=== PATIENT | female | born 1970 | race Caucasian/White ===

== ENCOUNTER → 2024-10-03 10:59 | Outpatient (CLI) | payer OTHER, SELFPAY ==
[2024-10-03 11:38] LABS: Add Manual Diff / Slide Review NO; Basophils Absolute Auto 0 /uL (0-100); Basophils Percent Auto 0.5 % (0-2); Eosinophils Absolute Auto 400 /uL (0-450); Eosinophils Percent Auto 5.5 % (2-4); Hematocrit 41.1 % (36-46); Lymphocytes Absolute Auto 1000 /uL (1100-4500); Lymphocytes Percent Auto 13.3 % (25-40); Mean Corpuscular HGB Conc 31.7 % (30-36); Mean Corpuscular Hemoglobin 24.3 PG (26-34); Mean Corpuscular Volume 76.5 fL (80-100); Monocytes Absolute Auto 500 /uL (0-900); Monocytes Percent Auto 6.7 % (3-14); Neutrophils Absolute Auto 5700 /uL (1500-7000); Platelet Count 269 X10^3/uL (150-400); Red Blood Cell Count 5.38 X10^6/uL (4.0-5.2); Red Cell Distribution Width 18.5 % (11.6-14.8); White Blood Cell Count 7.7 X10^3/uL (4.5-11.0)
[2024-10-03 11:42] LABS: Hemoglobin A1C% w Est Avg Glu 6.1 % (4.0-6.0)
[2024-10-03 11:55] LABS: Alanine Aminotransferase 17 IU/L (<35); Albumin 4.2 g/dL (3.5-5.0); Albumin Globulin Ratio 1.1 (1.0-2.8); Alkaline Phosphatase 78 U/L (38-126); Aspartate Aminotransferase 23 IU/L (14-36); BUN Creatinine Ratio 19.6 (6-22); Blood Urea Nitrogen 21 mg/dL (7-17); Calcium 9.1 mg/dL (8.4-10.2); Carbon Dioxide 26 mmol/L (22-32); Chloride 104 mmol/L (98-107); Cholesterol 201 mg/dL (140-199); Estimated Glomerular Filt Rate > 60 mL/min (>60); Glucose 115 mg/dL (70-100); HDL Cholesterol 84 mg/dL (40-60); HEMOLYSIS < 15 (0-50); LDL Cholesterol Calculated 100 mg/dL (<100); Potassium 4.3 mmol/L (3.4-5.1); Sodium 139 mmol/L (137-145); Total Protein 8.2 g/dL (6.3-8.2); Triglycerides 83 mg/dL (35-150)
[2024-10-03 12:21] LABS: Thyroid Stimulating Hormone 0.987 uIU/mL (0.47-4.68)
[2024-10-03 14:20] LABS: Creatinine Urine Random 224.29 mg/dL
[2024-10-03 14:28] LABS: Microalbumin Urine Random 2.9 mg/dL (0-1.6)
== END ==
PROVIDERS: PCP Student in an Organized Health Care Education/Training Program; Referring Provider Student in an Organized Health Care Education/Training Program; Visit Provider Student in an Organized Health Care Education/Training Program
DX: I10 Essential (primary) hypertension (principal); E66.9 Obesity, unspecified; Z13.1 Encounter for screening for diabetes mellitus; Z13.29 Encounter for screening for other suspected endocrine disorder; Z87.19 Personal history of other diseases of the digestive system
CPT/HCPCS: 36415; 80053; 80061; 82043; 82570; 83036; 84443; 85025

== ENCOUNTER → 2024-11-29 08:07 | Outpatient (CLI) | payer OTHER, SELFPAY ==
--- NOTE | 2024-11-29 08:19 | DI.ECHO.S_ITS ---
[facility] +---------+ [facility] : : [id number] : : [place] : : [id number] : : Phone: [phone] Echocardiogram Report + + :Name: TOMY BRO Study Date: 11/29/2024 Height: 62 in : :Hospital ReadingLocation: Weight: 380 lb: : Gender: Female BSA: 2.5 m2 : :: 1970 Age: 54 yrs : :Reason For Study: ESSENTIAL HYPERTENSION : :Ordering Physician: YOLANDA, : :ANDREEA Davis Performed By: Long Orta : :Referring: ANDREEA GUERRERO : + + Interpretation Summary The study quality was technically difficult. The ejection fraction is estimated to be 60-65%. Grade I diastolic dysfunction. The right ventricular systolic function is normal. The IVC is of normal diameter and collapses greater than 50% with a sniff. This suggests a low right atrial pressure of 3 mm Hg. No significant valvular abnormalities Procedure: A two-dimensional transthoracic echocardiogram with color flow and Doppler was performed. A contrast injection of Definity was performed to improve assessment of LV function. The study quality was technically difficult. There is no prior echocardiogram noted for this patient. The patient had occasional PVCs during the exam. Left Ventricle: The left ventricle is normal in size. Left ventricular wall thickness is mildly increased. There is no ventricular septal defect visualized. The ejection fraction is estimated to be 60-65%. There are no obvious focal wall motion abnormalities noted but poor endocardial definition reduces the sensitivity for the detection of such. Grade I diastolic dysfunction. Right Ventricle: The right ventricle is normal in size, thickness and function. The right ventricular systolic function is normal. Atria: The left atrial size is normal. The right atrium is normal in size. There is no Doppler evidence for an interatrial shunt. Mitral Valve: There is mild to moderate mitral annular calcification. The mitral valve leaflets appear mildly thickened, but open well. There is no mitral regurgitation noted. Aortic Valve: The aortic valve is not well visualized. The aortic valve is mildly calcified. There is no hemodynamically significant valvular aortic stenosis. No aortic regurgitation is present. Tricuspid Valve: The tricuspid valve is not well visualized. There is a trace or physiologic amount of tricuspid regurgitation. Pulmonic Valve: The pulmonic valve is not well visualized. There is no pulmonic valvular regurgitation. Great Vessels: The aortic root is normal size. The ascending aorta could not be visualized. The pulmonary artery is not well visualized, but is probably normal size. The IVC is of normal diameter and collapses greater than 50% with a sniff. This suggests a low right atrial pressure of 3 mm Hg. MMode/2D Measurements & Calculations LVIDd: 4.2 cm LVOT diam: 2.0 cm LVIDs: 2.7 cm Ao root diam: 3.2 cm FS: 35.4 % Ao Arch Diam (Prox Trans): 1.9 cm EPSS: 0.82 cm IVSd: 1.3 cm LVPWd: 1.3 cm LV amaya. diameter/BSA (cm/m^2): 1.7 LV sys. diameter/BSA (cm/m^2): 1.1 LA A2 area: 15.8 cm2 RA long axis: 5.1 cm LA A4 area: 26.3 cm2 RA area: 18.5 cm2 LA length (vol): 6.3 cm RA vol: 56.8 ml LA vol: 55.9 ml RA : 22.6 ml/m2 LA vol index: 22.3 ml/m2 IVC diam: 2.0 cm RVD1 (basal): 4.6 cm RVD2 (mid): 3.7 cm TAPSE: 3.2 cm Doppler Measurements & Calculations Ao V2 max: 199.9 cm/sec LVOT Max Franky: 115.9 cm/sec Ao V2 mean: 143.4 cm/sec LV V1 max P.4 mmHg Ao max P.0 mmHg LV V1 VTI: 31.4 cm Ao mean P.4 mmHg QI(I,D): 2.5 cm2 Ao V2 VTI: 39.8 cm QI(V,D): 1.8 cm2 sev ratio: 0.79 QI indexed to BSA (cm^2/m^2): 0.98 MV E max franky: 98.2 cm/sec TR max franky: 270.3 cm/sec MV A max franky: 109.8 cm/sec TR max P.2 mmHg MV E/A: 0.89 PA V2 max: 131.6 cm/sec Med Peak E' Franky: 8.3 cm/sec PA V2 mean: 90.3 cm/sec E/E' med: 11.8 PA mean P.7 mmHg Lat Peak E' Franky: 8.6 cm/sec PA pr(Accel): 53.3 mmHg E/E' lat: 11.5 E/e' average: 11.6 MV dec time: 0.17 sec [facility] 98.4 ml Reading Physician:06:06 PM
[2024-11-29 10:10] LABS: Add Manual Diff / Slide Review NO; Basophils Absolute Auto 0 /uL (0-100); Basophils Percent Auto 0.4 % (0-2); Eosinophils Absolute Auto 400 /uL (0-450); Eosinophils Percent Auto 5.6 % (2-4); Hematocrit 41.2 % (36-46); Hemoglobin 13.1 g/dL (12.0-16.0); Lymphocytes Absolute Auto 1200 /uL (1100-4500); Lymphocytes Percent Auto 15.2 % (25-40); Mean Corpuscular HGB Conc 31.9 % (30-36); Mean Corpuscular Hemoglobin 24.3 PG (26-34); Mean Corpuscular Volume 76.3 fL (80-100); Monocytes Absolute Auto 500 /uL (0-900); Monocytes Percent Auto 7.1 % (3-14); Neutrophils Absolute Auto 5500 /uL (1500-7000); Neutrophils Percent Auto 71.7 % (50-75); Platelet Count 224 X10^3/uL (150-400); Red Cell Distribution Width 19.1 % (11.6-14.8); White Blood Cell Count 7.7 X10^3/uL (4.5-11.0)
== END ==
PROVIDERS: PCP Student in an Organized Health Care Education/Training Program; Referring Provider Student in an Organized Health Care Education/Training Program; Visit Provider Student in an Organized Health Care Education/Training Program
DX: N18.1 Chronic kidney disease, stage 1 (principal); I12.9 Hypertensive chronic kidney disease with stage 1 through stage 4 chronic kidney disease, or unspecified chronic kidney disease; I34.81 Nonrheumatic mitral (valve) annulus calcification
CPT/HCPCS: 36415; 85025; C8929; Q9957